=== PATIENT | female | born 1985 | race Caucasian/White ===

== ENCOUNTER 2024-09-14 11:04 | Emergency (ER) | payer OTHER, BC ==
[~2024-09-14] VITALS: Ht 157.5 cm; Wt 65.8 kg
[2024-09-14 11:38] VITALS: BP 101/61; TEMP 99.2
[2024-09-14 12:00] VITALS: O2SAT 99
== END 2024-09-14 12:02 | disposition home or self-care (01) ==
LOC: ER 11:04
DX: M54.9 Dorsalgia, unspecified (principal); V43.52XA Car driver injured in collision with other type car in traffic accident, initial encounter; Y93.89 Activity, other specified; Y92.488 Other paved roadways as the place of occurrence of the external cause; Y99.8 Other external cause status